=== PATIENT | female | born 1990 | race Caucasian/White ===

== ENCOUNTER 2019-03-08 07:04 | Outpatient (CLI) | payer BC, OTHER ==
[2019-03-08] MEDS ORDERED: ONDANSETRON HCL INJ/PF 4 MG/2 ML SDV IV ONE (07:19)
[2019-03-08] MEDS ORDERED: METOCLOPRAMIDE HCL INJ/PF 10 MG/2 ML SDV IV ONE (07:19)
[2019-03-08] MEDS ORDERED: ONDANSETRON HCL INJ/PF 4 MG/2 ML SDV ONE (07:22)
[2019-03-08] MEDS ORDERED: METOCLOPRAMIDE HCL INJ/PF 10 MG/2 ML SDV ONE (07:22)
[2019-03-08] MEDS ORDERED: PANTOPRAZOLE SODIUM 40 MG VIAL IV ONE (07:34)
[2019-03-08 08:10] LABS: ALANINE AMINOTRANSFERASE 22 U/L (9-52); ALBUMIN 4.6 g/dL (3.5-5.0); ALKALINE PHOSPHATASE 252 U/L (38-126); AMYLASE 160 U/L (30-110); ASPARTATE AMINO TRANSFERASE 25 U/L (14-36); BILIRUBIN,DIRECT 0.4 mg/dL (0.0-0.4); BILIRUBIN,TOTAL 0.5 mg/dL (0.2-1.3); BLOOD UREA NITROGEN 5 mg/dL (7-20); CALCIUM 10.5 mg/dL (8.4-10.2); CHLORIDE 113 mmol/L (98-107); GLUCOSE 112 mg/dL (75-110); LIPASE 314.9 U/L (23-300); POTASSIUM 4.4 mmol/L (3.6-5.0); SODIUM 136.1 mmol/L (137-145); TOTAL PROTEIN 8.6 g/dL (6.3-8.2)
[2019-03-08 08:12] LABS: HEMATOCRIT 35.2 % (36.0-47.0); MEAN CORPUSCULAR HEMOGLOBIN 29.4 pg (27.0-33.4); MEAN CORPUSCULAR HGB CONC 34.1 g/dL (32.0-36.0); MEAN CORPUSCULAR VOLUME 86 fl (80-97); PLATELET COUNT 444 10^3/uL (150-450); RED BLOOD COUNT 4.07 10^6/uL (3.72-5.28); RED CELL DISTRIBUTION WIDTH 13.7 % (11.5-14.0); WHITE BLOOD COUNT 15.6 10^3/uL (4.0-10.5)
[2019-03-08 08:15] LABS: ANION GAP 18 (5-19)
[2019-03-08 08:18] LABS: CARBON DIOXIDE 5 mmol/L (22-30)
[2019-03-08] MEDS: RINGERS SOLUTION,LACTATED 1,000 ML IV PRN ×2 (08:28→08:43)
[2019-03-08 08:33] LABS: ABSOLUTE MONOCYTES # (MANUAL) 0.5 10^3/uL (0.1-1.4); ABSOLUTE NEUTROPHILS# (MANUAL) 13.1 10^3/uL (1.7-8.2); BASOPHILS % (MANUAL) 0 % (0-2); EOSINOPHILS % (MANUAL) 0 % (0-6); LYMPHOCYTES % (MANUAL) 13 % (13-45); MONOCYTES % (MANUAL) 3 % (3-13); SEGMENTED NEUTROPHILS % (MAN) 84 % (42-78); TOTAL CELLS COUNTED 100
[2019-03-08 08:34] LABS: OVALOCYTES SLIGHT; PLATELET CLUMPS PRESENT; PLATELET COMMENT ADEQUATE; POIKILOCYTOSIS SLIGHT
[2019-03-08 09:14] LABS: URINE AMPHETAMINES SCREEN NEGATIVE; URINE BARBITURATES SCREEN NEGATIVE; URINE BENZODIAZEPINES SCREEN NEGATIVE; URINE COCAINE SCREEN NEGATIVE; URINE MARIJUANA (THC) SCREEN NEGATIVE; URINE METHADONE SCREEN NEGATIVE; URINE PHENCYCLIDINE SCREEN NEGATIVE
[2019-03-08 09:27] LABS: APPEARANCE,URINE SLIGHTLY-CLOUDY; BILIRUBIN,URINE NEGATIVE (NEGATIVE); COLOR,URINE YELLOW; GLUCOSE, URINE NEGATIVE (NEGATIVE); KETONES,URINE 80 mg/dL (NEGATIVE); LEUKOCYTE ESTERASE,URINE NEGATIVE (NEGATIVE); NITRITE,URINE NEGATIVE (NEGATIVE); PROTEIN,URINE 100 mg/dL (NEGATIVE); UROBILINOGEN,URINE NEGATIVE mg/dL (<2.0)
--- NOTE | 2019-03-08 10:49 | Non Stress Test Report ---
Non Stress Test Datetime Report Generated by CPN: 03/08/2019 10:48 DEMOGRAPHIC EGA NST: 35.3 INDICATION Indication for Study: Ordered by Provider; Other Indication for Study (NST) Other: LC MONITORING Monitor Explained: Monitor Explained; Test Explained; Patient Verbalized Understanding Time on Monitor: 03/08/2019 10:12 Time off Monitor: 03/08/2019 10:32 NST Duration: 20 NST INTERVENTIONS NST Interventions: PO Hydration; IV Fluids Physician Notified NST: Dr. Moon BABY A: [id number] BABY A Movement : Present Contraction Frequency : irregular FHR Baseline : 120 Accelerations : 15X15 Decelerations : None Variability : Moderate 6-25bpm NST Review: Meets Criteria for Reactive NST NST Review and Verified By : KAREN Bolden Results: Reactive NST REPORT Report Trigger: Send Report (Annotations: Data stored by [facility] on behalf of user)
== END 2019-03-08 10:43 | disposition home or self-care (01) ==
LOC: LC 07:04
PROVIDERS: ATTEND Obstetrics & Gynecology
PROC: 4A1HXCZ Monitoring of Products of Conception, Cardiac Rate, External Approach (ICD-10-PCS; principal; 2019-03-08)
DX: O26.893 Other specified pregnancy related conditions, third trimester (principal); E86.0 Dehydration; Z3A.35 35 weeks gestation of pregnancy
CPT/HCPCS: 59025; 94760; 36415; 82150; 83690; 85025; 80053; 81001; 80307; J2765; S0164; J2405

== ENCOUNTER 2019-04-08 04:43 | Inpatient (IN) | payer OTHER ==
[2019-04-08 06:30] LABS: APPEARANCE,URINE CLOUDY; BILIRUBIN,URINE NEGATIVE (NEGATIVE); GLUCOSE, URINE NEGATIVE (NEGATIVE); KETONES,URINE 80 mg/dL (NEGATIVE); LEUKOCYTE ESTERASE,URINE MODERATE (NEGATIVE); NITRITE,URINE NEGATIVE (NEGATIVE); PROTEIN,URINE 100 mg/dL (NEGATIVE); URINE SPECIFIC GRAVITY 1.023; UROBILINOGEN,URINE NEGATIVE mg/dL (<2.0)
[2019-04-08 06:38] LABS: COLOR,URINE DARK YELLOW
[2019-04-08] MEDS ORDERED: MISOPROSTOL 0.2 MG TABLET ONE (06:43)
[2019-04-08] MEDS ORDERED: LIDOCAINE 1% INJ-PF (10 MG/ML) 30 ML SDV ONE (06:43)
[2019-04-08] MEDS ORDERED: OXYTOCIN/NORMAL SALINE 20 UNIT/1,000 ML RTUINJ ONE (06:43)
[2019-04-08] MEDS ORDERED: OXYTOCIN 10 UNIT/ML VIAL ONE (06:43)
[2019-04-08 06:50] LABS: URINE AMPHETAMINES SCREEN NEGATIVE; URINE BARBITURATES SCREEN NEGATIVE; URINE BENZODIAZEPINES SCREEN NEGATIVE; URINE COCAINE SCREEN NEGATIVE; URINE MARIJUANA (THC) SCREEN NEGATIVE; URINE METHADONE SCREEN NEGATIVE
[2019-04-08 07:06] LABS: URINE PHENCYCLIDINE SCREEN NEGATIVE
[2019-04-08 07:13] LABS: HEMOGLOBIN 9.6 g/dL (12.0-15.5); MEAN CORPUSCULAR HEMOGLOBIN 26.7 pg (27.0-33.4); MEAN CORPUSCULAR HGB CONC 33.2 g/dL (32.0-36.0); MEAN CORPUSCULAR VOLUME 81 fl (80-97); PLATELET COUNT 369 10^3/uL (150-450); RED CELL DISTRIBUTION WIDTH 14.4 % (11.5-14.0)
[2019-04-08] MEDS ORDERED: ONDANSETRON HCL INJ/PF 4 MG/2 ML SDV ONE (07:38)
[2019-04-08 07:51] LABS: ABSOLUTE LYMPHOCYTES# (MANUAL) 1.3 10^3/uL (0.5-4.7); ABSOLUTE MONOCYTES # (MANUAL) 0.7 10^3/uL (0.1-1.4); BASOPHILS % (MANUAL) 0 % (0-2); EOSINOPHILS % (MANUAL) 0 % (0-6); LYMPHOCYTES % (MANUAL) 9 % (13-45); MONOCYTES % (MANUAL) 5 % (3-13); SEGMENTED NEUTROPHILS % (MAN) 86 % (42-78); TOTAL CELLS COUNTED 100
[2019-04-08 07:52] LABS: ANISOCYTOSIS 1+; OVALOCYTES 1+; PLATELET COMMENT ADEQUATE; POIKILOCYTOSIS 1+; POLYCHROMASIA SLIGHT; TOXIC GRANULATION 1+
[2019-04-08] MEDS ORDERED: PROMETHAZINE HCL INJ 25 MG/1 ML VIAL ONE (08:11)
[2019-04-08] MEDS ORDERED: NALBUPHINE HCL INJ 10 MG/1 ML AMPULE ONE (08:11)
[2019-04-08] MEDS ORDERED: PROMETHAZINE HCL INJ 25 MG/1 ML VIAL IV ONE (09:00)
[2019-04-08] MEDS ORDERED: NALBUPHINE HCL INJ 10 MG/1 ML AMPULE INJ ONE (09:00)
--- NOTE | 2019-04-08 09:04 | Admission Physical ---
Datetime Report Generated by CPN: 04/08/2019 09:03 CURRENT ADMISSION Hx Assessment: The History has been Reviewed and is Current Chief Complaint: Uterine Contractions Indication for Induction: Not Applicable Admit Impression : Term, Intrauterine ; Active Labor Admit Plan: Admit to Unit; Initiate Labor Protocol ALLERGIES Medication Allergies: Yes Medication Allergies: codeine/MO/Vomiting (04/08/2019) Latex: Unknown Food Allergies: none Environmental Allergies: none OBSTETRICAL HISTORY EDC: 04/09/2019 00:00 : 2 Para: 1 Term: 1 : 0 SAB: 0 IAB: 0 Ectopic: 0 Livin Cesareans: 0 VBACs: 0 Multiple Births: 0 Gestational Diabetes: Yes Rh Sensitization: No Incompetent Cervix: No ANA ROSA: No Infertility: No ART Treatment: No Uterine Anomaly: No IUGR: No Hx Previous C/S: No Macrosomia: No Hx Loss/Stillborn: No PIH: No Hx : No Placenta Previa/Abruption: No Depression/PP Depression: No PTL/PROM: No Post Hemorrhage: No Current Procedures: Ultrasound Obstetrical History Comments: G1- 2014 38.5 weeks, baby girl GDM G2- current SEE RECORDS Alcohol: No Marijuana : No Cocaine: No Other Illicit Drugs: No Cigarettes: Never Smoker. 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 Surgery: No Heart Disease: No Hosp/Surgery: Yes Autoimmune Disorder: No Anesthetic Complications: No Kidney Disease: No Abnormal Pap Smear: No Neuro/Epilepsy: No Psychiatric Disorders: No Other Medical Diseases: No Hepatitis/Liver Disease: No Significant Family History: No Varicosities/Phlebitis: No Trauma/Violence : No Thyroid Dysfunction: No Medical History Comments: breast implants 2013, childbirth x1, INFECTIOUS HISTORY Gonorrhea: No Genital Herpes: No Chlamydia: No Tuberculosis: No Syphilis: No Hepatitis: No HIV/AIDS Exposure: No Rash or Viral Illness: No HPV: No PHYSICAL EXAM General: Normal Heart: Normal Lungs: Normal Breast: Normal Back: Normal Abdomen: Normal Extremities: Normal Pelvic Type: Adequate Physical Exam Comments: pelvis proven to 5lbs 13oz Vital Signs: Reviewed; Within Normal Limits VAGINAL EXAM Contraction Comments: 2-5 MEMBRANES Membranes: Ruptured Amniotic Fluid Color: Meconium, Light FETUS A EGA: 39.6 Monitoring: External US FHR Category: Category I Estimated Weight (gm): 3300 Presentation: Vertex Admit Comment: 28yo @ 39w6d admitted in early labor this am prior to my shift by Dr. Sykes. Pt. is A pos, rubella non-immune, GBS neg. No significant medical hx except for GDM with G1 and elevated 1hr this but passed 3hr GTT x2. On admission, plan was to augment with pitocin as needed, pt. desires AROM at this time instead of pitocin. AROM by myself. Pt tolerated well, minimal bloody fluid with meconium. Epidural vs IV pain meds at this time. Consider pitocin for augment if no progress in the next couple of hours. PLANS FOR LABOR AND DELIVERY Labor and Delivery: Other, Specify Pain Management: Medications Feeding Preference: Breast Benefit of Breast Feed Discussed: Yes Circumcision: N/A INFORMED CONSENT Assignment: Rosina Jung MD Signature: with User ID: Sheila : with User ID: [email or web address]
[2019-04-08] MEDS ORDERED: FENTANYL CITRATE INJ/PF 100 MCG/2 ML AMPUL ONE (11:47)
[2019-04-08] MEDS ORDERED: FENTANYL CITRATE INJ/PF 100 MCG/2 ML AMPUL IV ONE (11:49)
[2019-04-08] MEDS ORDERED: PROMETHAZINE HCL INJ 25 MG/1 ML VIAL IV PRN (14:28)
[2019-04-08] MEDS ORDERED: DIPH/PERTUSS(ACELL)/TETANUS VAC/PF 0.5 ML SYR (>=10YO) IM PRN (14:28)
[2019-04-08] MEDS ORDERED: BENZOCAINE/MENTHOL AEROSOL SPRAY 56 ML TOP PRN (14:28)
[2019-04-08] MEDS ORDERED: OXYTOCIN/NORMAL SALINE 20 UNIT/1,000 ML RTUINJ IV PRN (14:28)
[2019-04-08] MEDS ORDERED: ACETAMINOPHEN 650 MG SUPP.RECT PR PRN (14:28)
[2019-04-08] MEDS ORDERED: PSEUDOEPHEDRINE HCL 30 MG TABLET PO PRN (14:28)
[2019-04-08] MEDS ORDERED: MAGNESIUM HYDROXIDE SUSP 30 ML UDCUP PO PRN (14:28)
[2019-04-08] MEDS ORDERED: MEASLES,MUMPS&RUBELLA VACC/PF 0.5 ML VIAL SUBCUT PRN (14:28)
[2019-04-08] MEDS ORDERED: ACETAMINOPHEN 325 MG TABLET PO PRN (14:28)
[2019-04-08] MEDS ORDERED: PROMETHAZINE HCL 25 MG SUPP.RECT PR PRN (14:28)
[2019-04-08] MEDS ORDERED: NA PHOS,M-B/NA PHOS,DI-BA (ADULT) 133 ML ENEMA PR PRN (14:28)
[2019-04-08] MEDS ORDERED: GLYCERIN/WITCH HAZEL LEAF 1 EACH MED..WIPE TP PRN (14:28)
[2019-04-08] MEDS ORDERED: DIPHENHYDRAMINE HCL 25 MG CAPSULE PO PRN (14:28)
[2019-04-08] MEDS ORDERED: PROMETHAZINE HCL 25 MG TABLET PO PRN (14:28)
[2019-04-08] MEDS ORDERED: DIBUCAINE 1% OINTMENT 56 GM TP PRN (14:28)
[2019-04-08] MEDS ORDERED: IBUPROFEN 800 MG TABLET ONE (15:05)
[2019-04-08] MEDS: IBUPROFEN 800 MG TABLET PO SCH ×2 (15:07→21:28)
--- NOTE | 2019-04-08 15:16 | Delivery Summary ---
Del Sum A-C Datetime Report Generated by CPN: 04/08/2019 15:16 DELIVERY PERSONNEL DELIVERY PERSONNEL: [id number] Delivery Doctor:: Dixie Maldonado CNM Labor and Delivery Nurse:: Pau Robins RNmetal fabricator apprentice Nurse:: SURI Damian Physical Science Technician:: Cristina Black RN Nursery Nurse:: Libertad De Guzman RN Wire Basket Maker/GUM COOK: Tegan Qureshi, ST MATERNAL INFORMATION Delivery Anesthesia: None Medications After Delivery: Pitocin Drip 20 Units/1000ml NSS Maternal Complications: None Provider Comments: pt progressed to 9.5/c/0 with urge to push, started involuntarily pushing and breathing with some contractions and then progressed to c/c/1. Continued pushing and went on to deliver a viable baby thru nuchal x1. Spontaneous cry and vigorous respiratory effort spontaneously at . Baby placed on maternal abdomen, terminal meconium and void x1 with delivery. Cord allowed to stop pulsating then clamped x2 and cut by FOB (3 vc noted). Placenta delivered spontaneously intact. Vaginal and perineal inspection revealed labial and vaginal abrasions that were hemostatic. Fundus firm at U-2, mid position, bleeding stable. Mother and baby skin to skin and bonding at this time. LABOR SUMMARY EDC: 04/09/2019 00:00 No. Babies in Womb: 1 Attempted: No Labor Anesthesia: None LABOR INFORMATION Onset of Labor: 04/08/2019 00:01 Complete Dilatation: 04/08/2019 12:36 Oxytocin: N/A Group B Beta Strep: Negative Steroids Given: None Reason Steroids Not Administered: Not Applicable MEMBRANES Membranes Rupture Method: Artificial Rupture of Membranes: 04/08/2019 08:32 Length of Rupture (hr): 4.22 Amniotic Fluid Color: Light Meconium Amniotic Fluid Amount: Small STAGES OF LABOR Stage 1 hr: 12 Stage 1 min: 35 Stage 2 hr: 0 Stage 2 min: 9 Stage 3 hr: 0 Stage 3 min: 6 Total Time in Labor hr: 12 Total Time in Labor min: 50 VAGINAL DELIVERY Episiotomy: None Laceration #1: None Laceration Repair: Not Applicable Laceration Repair Note: n/a Sponge Count Correct: Yes Sharps Count Correct: N/A CSECTION DELIVERY Primary Indication: N/A Secondary Indication: N/A CSection Incidence: N/A Labor: N/A Elective: N/A CSection Incision: N/A BABY A INFORMATION Infant Delivery Date/Time: 04/08/2019 12:45 Method of Delivery: Vaginal Born in Route : No : N/A Forceps: N/A Vacuum Extraction: N/A Shoulder Dystocia : No PRESENTATION/POSITION BABY A Presentation: Cephalic Cephalic Presentation: Vertex Vertex Position: Right Occipital Anterior Breech Presentation: N/A PLACENTA INFORMATION BABY A Placenta Delivery Time : 04/08/2019 12:51 Placenta Method of Delivery: Spontaneous Placenta Status: Delivered SCORES BABY A Heart Rate 1 min: >100 bpm Resp Effort 1 min: Good Cry Reflex Irritability 1 min: Cough or Sneeze or Pulls Away Muscle Tone 1 min: Active Motion Color 1 min: Blue/Pale SCORE 1 MIN: 8 Heart Rate 5 min: >100 bpm Resp Effort 5 min: Good Cry Reflex Irritability 5 min: Cough or Sneeze or Pulls Away Muscle Tone 5 min: Active Motion Color 5 min: Body Lamar, Extremities Blue SCORE 5 MIN: 9 INFANT INFORMATION BABY A Gestational Age at Delivery: 39.6 Gestational Status: Full Term- 39- 40.6 Weeks Infant Outcome : Liveborn Infant Condition : Stable Infant Sex: Female IDENTIFICATION BABY A Verification Date/Time: 04/08/2019 13:07 ID Band Number: [id number] Mother's Name Verified: Yes Infant RN Verifying Infant: B Baidy RN/C [place] RN WEIGHT/LENGTH BABY A Birthweight (gm): 3189 Infant Weight (lb): 7 Infant Weight (oz): 0 Infant Length (in): 20.00 Infant Length (cm): 50.80 CORD INFORMATION BABY A No. Cord Vessels: 3 Nuchal Cord : Around Neck x1, Loose Cord Blood Taken: Yes-For Storage (Mom's Blood type +) Infant Suction: Mouth ASSESSMENT BABY A Infant Complications: Meconium Physical Findings at Delivery: Within Normal Limits Respirations: Appears Normal Skin to Skin: Yes Skin to Skin Time (min): 15 Switching Operator/ALS Called : No Care By: Janice De Guzman RN Transferred To: Remains with Mother BABY B INFORMATION : N/A SIGNATURES Assignment: Rosina Jung MD Signature: with User ID: Sheila : with User ID: Sheila
[2019-04-08] MEDS: DOCUSATE SODIUM 100 MG CAPSULE PO SCH (18:01)
[2019-04-08] MEDS: FERROUS SULFATE 325 MG TABLET PO SCH (18:01)
[2019-04-08] MEDS: FAMOTIDINE 20 MG TABLET PO SCH (21:28)
[2019-04-09] MEDS: IBUPROFEN 800 MG TABLET PO SCH ×3 (05:52→22:26)
[2019-04-09 06:49] LABS: HEMATOCRIT 24.2 % (36.0-47.0); MEAN CORPUSCULAR HEMOGLOBIN 26.4 pg (27.0-33.4); MEAN CORPUSCULAR HGB CONC 32.6 g/dL (32.0-36.0); MEAN CORPUSCULAR VOLUME 81 fl (80-97); PLATELET COUNT 325 10^3/uL (150-450); RED BLOOD COUNT 2.99 10^6/uL (3.72-5.28); RED CELL DISTRIBUTION WIDTH 14.7 % (11.5-14.0); WHITE BLOOD COUNT 15.4 10^3/uL (4.0-10.5)
[2019-04-09 06:51] LABS: HEMOGLOBIN 7.9 g/dL (12.0-15.5)
[2019-04-09] MEDS: FAMOTIDINE 20 MG TABLET PO SCH ×2 (09:41→22:26)
[2019-04-09] MEDS: PRENATAL VITAMIN W DHA CAPSULE PO SCH (09:41)
[2019-04-09] MEDS: DOCUSATE SODIUM 100 MG CAPSULE PO SCH ×2 (09:41→17:34)
[2019-04-09] MEDS: SENNOSIDES/DOCUSATE 8.6-50 MG 1 EACH TABLET PO SCH (09:41)
[2019-04-09] MEDS: FERROUS SULFATE 325 MG TABLET PO SCH ×2 (09:41→17:34)
--- NOTE | 2019-04-09 16:31 | PDOC PROGRESS REPORT ---
Subjective-OB Progress Note for:: 04/09/19 Subjective: reports bleeding slowing, pain controlled with current meds, denies needs Physical Exam (OB) Vital Signs: Temp Pulse Resp BP Pulse Ox 98.1 F 84 18 102/61 100 04/09/19 07:43 04/09/19 07:43 04/09/19 07:43 04/09/19 07:43 04/09/19 07:43 Intake & Output 04/08/19 04/09/19 04/10/19 06:59 06:59 06:59 Weight 79.5 kg - Abdomen Description: Soft Hernia Present: No Fundal Description: Firm, Midline Fundal Height: 1/u - 2/u - Abdominal Distension: No distension Tenderness: Nontender - Extremities Lower extremities: Francia's sign - neg Calf: Normal, Nontender Objective-Diagnostic Laboratory: 04/09/19 06:20 04/09/19 06:20 WBC 15.4 H RBC 2.99 L Hgb 7.9 L Hct 24.2 L MCV 81 MCH 26.4 L MCHC 32.6 RDW 14.7 H Plt Count 325 Assessment and Plan(PN) - Assessment and Plan (1) Normal vaginal delivery Is this a current diagnosis for this admission?: Yes - Time Spent with Patient Time with patient: Less than 15 minutes - Disposition Anticipated Discharge: Home Within: within 24 hours
[2019-04-10] MEDS: IBUPROFEN 800 MG TABLET PO SCH ×2 (06:09→14:01)
[2019-04-10 09:08] VITALS: BP 100/69
[2019-04-10] MEDS: DOCUSATE SODIUM 100 MG CAPSULE PO SCH (10:12)
[2019-04-10] MEDS: PRENATAL VITAMIN W DHA CAPSULE PO SCH (10:12)
[2019-04-10] MEDS: FERROUS SULFATE 325 MG TABLET PO SCH (10:12)
[2019-04-10] MEDS: FAMOTIDINE 20 MG TABLET PO SCH (10:12)
[2019-04-10] MEDS: SENNOSIDES/DOCUSATE 8.6-50 MG 1 EACH TABLET PO SCH (10:12)
--- NOTE | 2019-04-10 12:57 | PDOC DISCHARGE SUMMARY ---
Final Diagnosis Discharge Date: 04/10/19 - Final Diagnosis (1) Normal vaginal delivery Is this a current diagnosis for this admission?: Yes Discharge Data - Discharge Medication Home Medications: Promethazine HCl [Phenergan 25 mg Tablet] 25 mg PO PRN PRN 03/08/19 Reason(s) for Admission: Onset of Labor Procedures: NST Intrapartum Procedure(s): Spontaneous Vaginal Delivery Complication(s): Laceration-Vaginal, Laceration-Perineal Laceration-Degree: 1st - Diagnosis Test Laboratory: Temp Pulse Resp BP Pulse Ox 98.2 F 92 16 100/69 99 04/10/19 07:42 04/10/19 07:42 04/10/19 07:42 04/10/19 07:42 04/10/19 07:42 04/08/19 04/08/19 04/09/19 05:51 06:55 06:20 RBC 3.60 L 2.99 L Hgb 9.6 L 7.9 L Hct 29.0 L 24.2 L Urine Opiates Screen NEGATIVE - Discharge information/Instructions Discharge Activity: Activity As Tolerated, Pelvic Rest Discharge Diet: Regular Disposition: HOME, SELF-CARE Follow up with: [facility] in: 4, Weeks
== END 2019-04-10 14:30 | disposition home or self-care (01) | DRG 807 ==
LOC: LC 04:43 → LR 06:43 → 2S 16:15
PROVIDERS: ADMIT Obstetrics & Gynecology; ATTEND Obstetrics & Gynecology
PROC: 10E0XZZ Delivery of Products of Conception, External Approach (ICD-10-PCS; principal; 2019-04-08)
PROC: 10907ZC Drainage of Amniotic Fluid, Therapeutic from Products of Conception, Via Natural or Artificial Opening (ICD-10-PCS; 2019-04-08)
PROC: 4A1HX4Z Monitoring of Products of Conception, Cardiac Electrical Activity, External Approach (ICD-10-PCS; 2019-04-08)
DX: O70.0 First degree perineal laceration during delivery (principal); Z37.0 Single live birth; O69.81X0 Labor and delivery complicated by cord around neck, without compression, not applicable or unspecified; O77.0 Labor and delivery complicated by meconium in amniotic fluid; Z3A.39 39 weeks gestation of pregnancy; Z88.6 Allergy status to analgesic agent
CPT/HCPCS: 36415; 80307; 81005; 85025; 85027; 86592; 86850; 86900; 86901; J2300; J2405; J2550; J2590; J3010; J3490